=== PATIENT | male | born 1960 | race Two or more races ===

== ENCOUNTER 2023-01-06 09:00 | Outpatient (RCR) | payer MEDICAID, SELFPAY | END 2023-03-07 15:12 | disposition home or self-care (01) | LOC: HO.PT 09:00 | PROVIDERS: PCP Nurse Practitioner Family; Visit Provider Urology | DX: C61 Malignant neoplasm of prostate (principal) | CPT/HCPCS: 97110; 97112; 97161; 97530 ==